=== PATIENT | female | born 1975 | race Caucasian/White ===

== ENCOUNTER 2022-03-11 13:49 | Emergency (ER) | payer BC ==
[~2022-03-11] VITALS: Ht 162.6 cm; Wt 143.8 kg
[~2022-03-11 13:49] MED LIST: EPIPEN 2-P0.3 MG/0.3 IM; IBUPROFEN600 MG PO; NORCO 5-325 TA1 EACH PO; PEPCID20 MG PO; ZOFRAN4 MG PO
--- NOTE | 2022-03-12 12:56 | EKG ---
[facility] [address] [place] [address] Signed Normal sinus rhythm Normal ECG No previous ECGs available Confirmed by MARCO CRUZ MD ([id number]) on 03/12/2022 12:55:50 PM Electronically Signed By: MARCO CRUZ MD 03/12/22 1256 PATIENT NAME: JUJU GHOSH Electrocardiogram DATE OF : 75 PHYSICIAN: MARCO CRUZ MD REPORT #: [id number] REPORT IS CONFIDENTIAL AND NOT TO BE RELEASED WITHOUT AUTHORIZATION
== END 2022-03-11 18:14 | disposition home or self-care (01) ==
LOC: ED 13:49
DX: R07.9 Chest pain, unspecified (principal); E66.9 Obesity, unspecified; F17.200 Nicotine dependence, unspecified, uncomplicated
CPT/HCPCS: 36415; 71045; 80053; 83735; 84484; 85025; 85379; 93005; 93010; 99285-25

== ENCOUNTER 2023-03-27 17:17 | Emergency (ER) | payer OTHER, BC ==
[~2023-03-27] VITALS: Ht 162.6 cm; Wt 137.9 kg
--- OUTSIDE RECORDS SUMMARY | 2023-03-27 17:22 | XMS ---
PreManage Notification: JUJU GHOSH [employer] Events 1 event(s) in the past 18 months Most recent security events: Elopement at [facility] 01/22/2023 20:34 - Patient eloped before treatment completed. - Patient with suicidal and/or homicidal ideations eloped. - Patient eloped with IV in place. Details: Patient LWOB. CRITERIA MET - Group Notification - [facility] CARE PROVIDERS ALEJO KHAN Current PHONE: [phone] Judy has no Care Guidelines for this patient. E.D. VISIT COUNT (12 MO.) [address] TOTAL 6 NOTE: Visits indicate total known visits. ED/UCC VISIT TRACKING (12 MO.) 03/27/2023 17:18 [facility] [place] TYPE: Emergency COMPLAINT: - R KNEE PAIN 01/22/2023 20:34 [facility] [place] TYPE: Emergency COMPLAINT: - HEADACHE,NAUSEA,ABD PAIN,CHILLS 12/21/2022 00:42 [facility] [place] TYPE: Emergency DIAGNOSES: - Migraine with aura, not intractable, without status migrainosus - HEADACHE 11/22/2022 15:54 [facility] [place] TYPE: Emergency DIAGNOSES: - Nondisplaced fracture of lateral malleolus of left fibula, initial encounter for closed fracture - FALL LEG INJURY 10/07/2022 11:39 [facility] [place] TYPE: Emergency COMPLAINT: - Chest [id number] - OTHER CHEST PAIN - SHORTNESS OF BREATH DIAGNOSES: 0. Other chest pain 1. Other chest pain 4. Essential (primary) hypertension 5. Personal history of nicotine dependence 07/16/2022 15:15 [facility] [place] TYPE: Emergency DIAGNOSES: - Other fracture of upper and lower end of left fibula, initial encounter for closed fracture - left ankle/rt knee inj INPATIENT VISIT TRACKING (12 MO.) No inpatient visits to display in this time frame [email or web address]
[2023-03-27] MEDS ORDERED: NAPROSYN500 MG PO (18:02)
[2023-03-27 18:25] VITALS: BP 170/60
== END 2023-03-27 18:38 | disposition home or self-care (01) ==
LOC: ED 17:17
DX: S86.811A Strain of other muscle(s) and tendon(s) at lower leg level, right leg, initial encounter (principal); F17.200 Nicotine dependence, unspecified, uncomplicated; X50.1XXA Overexertion from prolonged static or awkward postures, initial encounter
CPT/HCPCS: 73560; 99283 25

== ENCOUNTER 2025-01-07 05:58 | Emergency (ER) | payer BC ==
[~2025-01-07] VITALS: Ht 160 cm; Wt 145.5 kg
[~2025-01-07 05:58] MED LIST changes: +NAPROSYN500 MG PO
--- OUTSIDE RECORDS SUMMARY | 2025-01-07 06:05 | XMS ---
PreManage Notification: JUJU GHOSH Security [place] Events No recent Security Events currently on file CRITERIA MET - Group Notification CARE PROVIDERS Reggie Pagan Community Health Worker 09/30/2023-Current PHONE: [phone] ALEJO KHAN Log Operations Coordinator Current PHONE: [phone] TYLER DRAKE Emergency Medicine Current PHONE: [phone] Judy has no Care Guidelines for this patient. E.Errol. VISIT COUNT (12 MO.) 2 [facility] TOTAL 3 NOTE: Visits indicate total known visits. ED/UCC VISIT TRACKING (12 MO.) 01/07/2025 05:59 [facility] [place] TYPE: Emergency COMPLAINT: - FALL 01/12/2024 20:46 [facility] [place] TYPE: Emergency DIAGNOSES: - Effusion, left ankle - Pain in left ankle and joints of left foot - LEFT ANKLE INJ 01/12/2024 14:[address] [facility] [place] TYPE: Emergency COMPLAINT: - LT LEG PAIN INPATIENT VISIT TRACKING (12 MO.) No inpatient visits to display in this time frame [email or web address]
[2025-01-07] MEDS ORDERED: KETOROLAC TROMETHAMINE 60 MG/2 ML VIAL IM ONE (06:30)
[2025-01-07 07:27] LABS: BILIRUBIN, URINE NEGATIVE (negative); BLOOD/HGB, URINE TRACE-I (Negative); KETONE, URINE NEGATIVE (Negative); LEUK ESTERASE, URINE NEGATIVE (negative); NITRITE, URINE NEGATIVE (negative)
[2025-01-07 07:38] LABS: BACTERIA, URINE RARE /hpf (negative); CASTS, URINE NONE SEEN \\lpf; COLLECTION TYPE, URINE CLEAN CATCH; CRYSTALS, URINE NONE SEEN (0-1+); EPITHELIAL CELLS, URINE SQUAMOUS 3+ /lpf (0-1+); REFLEX CULTURE, URINE No (No)
[2025-01-07] MEDS ORDERED: PREDNISONE20 MG PO (08:14)
[2025-01-07] MEDS ORDERED: HYDROCODON-ACE1 EA10 PO (08:14)
[2025-01-07] MEDS ORDERED: predniSONE 20 MG TAB PO ONE (08:15)
[2025-01-07 08:19] VITALS: BP 179/96
== END 2025-01-07 08:20 | disposition home or self-care (01) ==
LOC: ED 05:58
PROVIDERS: Internal Medicine
DX: M54.50 Low back pain, unspecified (principal); M25.561 Pain in right knee; M25.562 Pain in left knee; E66.01 Morbid (severe) obesity due to excess calories; F17.200 Nicotine dependence, unspecified, uncomplicated; Z79.899 Other long term (current) drug therapy
CPT/HCPCS: 72131; 73560; 81001; 96372; 99284-25; J1885; J7512